=== PATIENT | male | born 1975 | race Caucasian/White ===

== ENCOUNTER 2019-06-28 10:42 | Day surgery (SDC) | payer BC ==
[~2019-06-28] VITALS: Ht 182.9 cm; Wt 88.0 kg
[~2019-06-28 10:42] MED LIST: DEPAKOTE250 MG PO
--- NOTE | 2019-06-28 11:09 | NUR ---
LABS DRAWN WITH IV START. CIPRIANO WELL. SENT TO LAB.
--- NOTE | 2019-06-28 12:35 | NUR ---
06/28/19 1235 Sheets,Nafisa 1229 REPORT FROM REGISTRATION COORDINATOR, PT WOKE TO VERBAL STIMULI AND DENIES PAIN AND NAUSEA. PT LAYING IN PRONE AND FALLS EASILY BACK TO SLEEP. RESP EVEN AND UNLABORED.
--- NOTE | 2019-06-30 17:52 | PATH ---
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 DIAGNOSIS SUMMARY: A. Peripheral blood: - Erythrocytosis with macrocytic erythrocytes. B. Bone marrow, aspirate, clot section, and core biopsy: - Normocellular marrow (30-40%) with trilineage hematopoiesis. - Adequate iron stores without ring sideroblasts. - No significant fibrosis on reticulin stain. - See Diagnostic Comment. DIAGNOSTIC COMMENT: This patient's history of persistent erythrocytosis is noted. Evaluation of this bone marrow specimen reveals a normocellular marrow (30-40%) with a relative erythroid hyperplasia (M:E ratio is approximately 1:1). Megakaryocytes are not significantly increased, and do not demonstrate definite atypia or clustering. As such, morphologic features diagnostic of a myeloproliferative neoplasm are not appreciated. Erythrocytosis can also be seen in the setting of smoking, high altitude, chronic hypoxic state, amongst others. The macrocytosis is also noted, and can be associated with alcohol, vitamin B12/folate deficiency, hypothyroidism, etc. Clinical and laboratory correlation are suggested. Karyotype and JAK2 V617F, JAK2 exon 12, CALR, and MPL mutational studies are pending and results will be reported in an addendum. [facility]:smn:C2NR PERIPHERAL BLOOD: HEMOGRAM (06/28/2019): WBC 7.2 K/uL, RBC 5.06 M/uL, HGB 19.2 g/dL, HCT 55.3%, MCV 109.5 fL, MCH 38 pg, MCHC 35 g/dL, RDW 13.1%, PLT 190 K/uL. MANUAL DIFFERENTIAL COUNT (100 cells): Segmented neutrophils 61%, lymphocytes 24%, monocytes 8%, eosinophils 5%, and basophils 2%. The red cells are increased in number and are normochromic and macrocytic. Anisopoikilocytosis is not prominent. Polychromasia is not significantly PATIENT NAME: BRIAN POWELL PATHOLOGY DATE OF : 73 REPORT #: [id number] PHYSICIAN: CHAPARRO DON PCP: JUSTYN JEFFERY REPORT IS CONFIDENTIAL AND NOT TO BE RELEASED WITHOUT AUTHORIZATION [facility] [address] [place], [place] [address] Signed increased. Leukocytes are normal in number and show unremarkable morphology. Neutrophils are mature and demonstrate normal segmentation and granulation. Lymphocytes are predominantly small and show mature chromatin, although a subset of large granular lymphocytes and a few plasmacytoid lymphocytes are seen. Circulating blasts are not identified. Platelets are normal in number and show normal morphology. BONE MARROW: BONE MARROW ASPIRATE: The bone marrow aspirate smears demonstrate adequate cellular spicules. Myeloids are present in adequate number and demonstrate full spectrum maturation. Erythroids are present in adequate number and demonstrate full spectrum maturation. A subset of the erythroids demonstrates mild megaloblastoid changes. No significant dysplasia is seen is seen in the myeloids. Blasts are not increased. Megakaryocytes are present in adequate number. A rare smaller megakaryocyte is seen. MANUAL DIFFERENTIAL COUNT (200 cells): Blasts 0.5%, promyelocytes 1%, myelocytes 9.5%, metamyelocytes 7.5%, segs/bands 28.5%, erythroids 30%, lymphocytes 16%, plasma cells 1%, monocytes 4.5%, eosinophils 2.5%. BONE MARROW CORE BIOPSY AND ASPIRATE CLOT SECTION CELL BLOCK: The bone marrow core biopsy is normocellular for age (30-40%). Erythroids appear relatively increased and show full spectrum maturation. Myeloids are relatively decreased and also demonstrate full spectrum maturation. The estimated M:E ratio is approximately 1:1. No clusters of immature mononuclear cells are appreciated. Megakaryocytes are normal in number and are seen scattered and show largely normal morphology. No significant clustering of megakaryocytes is appreciated. Trabecular bone is normal. The bone marrow clot sections demonstrate multiple small fragments of marrow with similar findings as the core biopsy. SPECIAL STAINS (with adequate controls): - Iron stain (aspirate smear): Adequate iron stores, no ring sideroblasts. - Iron stain (block B1, clot section): Adequate iron stores, no ring sideroblasts. - Reticulin (bloc k A1, core biopsy): No increase in fibrosis (MF-0 of 3). IMMUNOHISTOCHEMICAL STAINS (block A1): - CD34: No increase in blasts, rare cells staining. - MPO: Positive in myeloids, demonstrates M:E ratio of approximately 1:1. PATIENT NAME: BRIAN POWELL PATHOLOGY DATE OF : 73 REPORT #: [id number] PHYSICIAN: CHAPARRO DON PCP: JUSTYN JEFFERY REPORT IS CONFIDENTIAL AND NOT TO BE RELEASED WITHOUT AUTHORIZATION [address] [address] Signed - CD71: Positive in erythroids, demonstrates M:E ratio of approximately 1:1. - Factor VIII: Positive in scattered megakaryocytes [facility]:smn FLOW CYTOMETRY: Bone marrow, flow cytometry: - No increase in blasts. - No monotypic B-cell or aberrant T-cell population identified. - See Comment. COMMENT: Flow cytometry of this bone marrow specimen demonstrates no increase in CD34 or CD117 positive blasts. In addition, no abnormal lymphocyte population is identified. Full interpretation of these results requires correlation with morphologic and clinical findings. FLOW CYTOMETRY ANALYSIS: FLOW DIFFERENTIAL (% Total CD45 vs. SSC gating): Myeloid 83%; Lymphoid 7%; Monocyte 3%; Dim CD45/Blast: 0.4%. Cell Count: 4.6 x 10*3/uL. POPULATION ANALYSIS: BLASTS: Analysis of the dim CD45 gate demonstrates 0.4% myeloblasts by CD34/CD117. 0.6% of total events are hematogones. LYMPHOID CELLS: The lymphocyte gate comprises 7% of total events and includes 73% T-cells with a CD4:CD8 ratio of 0.9:1 and normal winslow T-cell antigen expression. 11% of lymphocytes are polyclonal B-cells with a kappa:lambda ratio of 2.4:1. The remainders are NK-cells. MYELOID CELLS: The myeloid population comprises 83% of the total events. No aberrant immunophenotypic expression is detected. MONOCYTES: The monocyte population comprises 3% of the total events. Monocytes are not increased. No aberrant immunophenotypic expression is detected. PLASMA CELLS: 0.4% plasma cells are detected in the screening gate neg-dimCD45/CD38. Plasma cells are CD45 dim and positive for CD19. ANTIBODIES USED: KAPPA, LAMBDA, CD20, CD10, CD19, CD23, CD38, FMC7, CD16, CD56, CD8, CD5, CD2, CD4, CD7, CD3, CD14, CD33, CD13, HLADR, CD34, CD117, CD15, CD45: TOTAL ANTIBODIES USED: 24. DKW FINAL DIAGNOSIS PERFORMED BY: Kristal Hanson MD, Jun 29 2019 1:59PM CYTOGENETICS: Pending, to be reported by addendum. PATIENT NAME: BRIAN POWELL PATHOLOGY DATE OF : 73 REPORT #: [id number] PHYSICIAN: CHAPARRO PATHOLOGY PCP: JUSTYN JEFFERY REPORT IS CONFIDENTIAL AND NOT TO BE RELEASED WITHOUT AUTHORIZATION [facility] [address] [place] [id number] Signed MOLECULAR / PCR: Pending, to be reported by addendum. GROSS DESCRIPTION: A. The specimen, received in formalin, labeled "Kash, bone core," consists of a 2.1 cm, argueta bone core. Submitted in (A1) following decalcification in Immunocal for 1.5 hours. B. The specimen, received in formalin, labeled "Kash, clot," consists of a 2.4 x 2 x 0.1 cm aggregate of blood clot. Entirely submitted in (B1). tn:WILLI:lucas ADDITIONAL NOTES: Immunohistochemical and/or in situ hybridization studies were performed on this case with the appropriate positive controls that react as expected. This test was developed and its performance characteristics determined by [facility] It has not been cleared or approved by the U.S. Food and Drug Administration. The FDA has determined that such clearance or approval is not necessary. This test is used for clinical purposes. It should not be regarded as investigational or for research. [facility] is certified under the Clinical Laboratory Improvement Amendments of 1988 (CLIA) as qualified to perform high complexity clinical laboratory testing. In this case, certain antibodies were performed by both immunohistochemistry and flow cytometry analysis because flow cytometry analysis did not fully explain all the light microscopic findings. Immunohistochemistry aided in the analysis. Both methods are deemed medically necessary in this case. This test was developed and its performance characteristics determined by [facility] It has not been cleared or approved by the US Food and Drug Administration. The FDA does not require this test to go through premarket FDA review. This test is used for clinical purposes. It should not be regarded as investigational or for research. This laboratory is certified under the Clinical Laboratory Improvement Amendments (CLIA) as qualified to perform high complexity clinical laboratory testing. PERFORMING LABORATORY: Professional interpretation was performed by [facility], [address] [place] [address] (Facilities Maintenance Supervisor: Leroy Reyes Jr., M.D., YUNG; CLIA#: PATIENT NAME: BRIAN POWELL PATHOLOGY DATE OF : 73 REPORT #: [id number] PHYSICIAN: CHAPARRO DON PCP: JUSTYN JEFFERY REPORT IS CONFIDENTIAL AND NOT TO BE RELEASED WITHOUT AUTHORIZATION [address] [address] Signed [id number]). Professional interpretation was performed by [facility], [address] [facility] [place] [address] (Facilities Maintenance Supervisor: Leroy Reyes Jr., M.D., [facility]; CLIA#: [id number]). IMAGES: A: [id number] A: [id number] REASON FOR ADDENDUM: To add results of additional testing. MOLECULAR ANALYSIS Bone marrow aspirate, JAK2 (V617F) point mutation detection Mutation specific PCR assay Results/Conclusions: NEGATIVE - The specimen tested negative for the JAK2 V617F point mutation. - JAK2 exon 12, CALR exon 9 and MPL W515 mutation studies are pending and will be reported separately. - Clinical and histological correlation is required for diagnosis. The V617F mutation of the JAK2 (Janus kinase 2) gene has been described in polycythemia vera (PV), essential thrombocythemia (ET) and primary myelofibrosis (PMF) cases.1-2 Identification of the V617F JAK2 point mutation in myeloproliferative neoplasms (MPN) is indicated in diagnosis, classification and monitoring. The presence of a V617F JAK2 point mutation below the sensitivity limit of the mutation specific JAK2 V617F PCR assay [approximately 1 in 1000 cells (0.1 %) in EDTA specimens] cannot be ruled out. References 1. Barrett et al. The Lancet 2005: 1054 1061 2. Jorgito et al. Cancer Cell 2005: 387-397 Method: Utilizes quantitative real-time polymerase chain reaction (PCR) assay with specific primers for the JAK2 V617F point mutation. Genomic DNA was isolated from the specimen and quality and quantity were confirmed by RQ-PCR. Although molecular testing is highly accurate, rarely false-positive and false-negative diagnostic errors may occur. BZ/MICHELLE/KINZA The technical and professional components of the molecular analysis were performed at [facility] [employer] ([place], [place], case #[id number]). Detailed report is kept on file. PATIENT NAME: BRIAN POWELL PATHOLOGY DATE OF : 73 REPORT #: [id number] PHYSICIAN: CHAPARRO PATHOLOGY PCP: JUSTYN JEFFERY REPORT IS CONFIDENTIAL AND NOT TO BE RELEASED WITHOUT AUTHORIZATION [address] [place], [place] [address] Signed Diagnostician: Kristal Hanson MD Pathologist Electronically Signed 06/30/2019 Copies: ~ PATIENT NAME: BRIAN POWELL PATHOLOGY DATE OF : 73 REPORT #: [id number] PHYSICIAN: CHAPARRO PATHOLOGY PCP: JUSTYN JEFFERY REPORT IS CONFIDENTIAL AND NOT TO BE RELEASED WITHOUT AUTHORIZATION
== END 2019-06-28 13:04 | disposition home or self-care (01) ==
LOC: OPS 10:42 → DS 10:42
PROVIDERS: Specialist
PROC: 079T3ZX Drainage of Bone Marrow, Percutaneous Approach, Diagnostic (ICD-10-PCS; 2019-06-28)
PROC: 07DR3ZX Extraction of Iliac Bone Marrow, Percutaneous Approach, Diagnostic (ICD-10-PCS; principal; 2019-06-28 12:00)
DX: D75.1 Secondary polycythemia (principal); I10 Essential (primary) hypertension; E78.5 Hyperlipidemia, unspecified; G40.909 Epilepsy, unspecified, not intractable, without status epilepticus
CPT/HCPCS: 80053; 81270; 82668; 83615; 85025; 99152; J2250; J3010; J7120